=== PATIENT | male | born 1935 | race Caucasian/White ===

== ENCOUNTER 2022-03-05 05:27 | Inpatient (IN) | payer MEDICARE, BC ==
[2022-02-24 14:56] LABS: BASOPHILS % (AUTO) 0.2 % (0-1); EOSINOPHILS # (AUTO) 0.4 X10'3 (0-0.9); EOSINOPHILS % (AUTO) 4.8 % (0-6); LYMPHOCYTES # (AUTO) 1.1 X10'3 (1.1-4.8); LYMPHOCYTES % (AUTO) 13.4 % (21-51); MEAN CORPUSCULAR HEMOGLOBIN 31.3 PG (27.0-31.0); MEAN CORPUSCULAR HGB CONC 32.8 g/dL (33.0-36.5); MEAN CORPUSCULAR VOLUME 95.4 FL (78-98); MEAN PLATELET VOLUME 8.3 FL (7.4-10.4); MONOCYTES # (AUTO) 0.8 X10'3 (0-0.9); MONOCYTES % (AUTO) 10.8 % (2-12); NEUTROPHILS # (AUTO) 5.5 X10'3 (1.8-7.7); NEUTROPHILS % (AUTO) 70.8 % (42-75); PRE OP HEMATOCRIT 41.3 % (42.0-52.0); PRE OP HEMOGLOBIN 13.6 g/dL (14.0-17.9); PRE OP PLATELET COUNT 161 X10'3 (140-440); RED BLOOD COUNT 4.33 X10'6 (4.70-6.10); RED CELL DISTRIBUTION WIDTH 14.2 % (11.5-14.5)
[2022-02-24 15:03] LABS: PRE OP INR 1.2 INR; PRE OP PROTIME 12.4 SECONDS (9.0-12.0)
[2022-02-24 15:09] LABS: ALBUMIN 3.9 G/DL (3.4-5.0); ALBUMIN/GLOBULIN RATIO 1.3 (1.1-1.5); ALKALINE PHOSPHATASE 50 IU/L (46-116); BLOOD UREA NITROGEN 29 MG/DL (7-18); BUN/CREATININE RATIO 27.4 (5.4-32.0); CHLORIDE 107 MMOL/L (99-107); CREATININE 1.06 MG/DL (0.60-1.10); PRE OP ALT 20 U/L (30-65); PRE OP ANION GAP 5 (8-16); PRE OP AST 16 U/L (10-37); PRE OP BILIRUB, TOTAL 0.5 MG/DL (0.0-1.0); PRE OP GLUCOSE 117 MG/DL (70-104); PRE OP POTASSIUM 5.1 MMOL/L (3.4-5.1); PRE OP SODIUM 142 MMOL/L (135-145); TOTAL CARBON DIOXIDE 29.8 MMOL/L (24-32); eGFR 66 ML/MIN
[~2022-03-05] VITALS: Ht 175.3 cm; Wt 92.9 kg
[2022-03-05] VITALS (15 sets, daily range): BP systolic 121–150; BP diastolic 60–125
[~2022-03-05 05:27] MED LIST: CARV-50 PO; CELE-85 PO; DABI150C PO; FURO20TA4 PO; LISI20TA28 PO; MAGN400C PO; ringers solution, lacted 1,000 ML IV SCH
[2022-03-05] MEDS ORDERED: famotidine 20mg tablet PO ONE (05:30)
[2022-03-05] MEDS ORDERED: vancomycin 1,500 MG in NS 300ml IV soln IV ONE (05:30)
[2022-03-05] MEDS ORDERED: clindamycin-Cleocin 900mg/D5W 50 ML IV ONE (05:30)
[2022-03-05] MEDS ORDERED: carVEDilol 12.5mg tablet PO ONE (06:35)
[2022-03-05] MEDS ORDERED: carVEDilol 12.5mg tablet PO SCH (06:35)
[2022-03-05] MEDS ORDERED: ROPIVAcaine 0.5% (5mg/ml) 30ml vial ONE ×2 (06:58→09:39)
[2022-03-05] MEDS ORDERED: epiNEPHrine 1 mg/ml inj ONE (06:58)
--- NOTE | 2022-03-05 06:59 | NUR ---
PATIENT DID NOT WATCH ORTHO DVD, HE DID USE OINTMENT IN NARES, PULSES MARKED, CSM INTACT
[2022-03-05] MEDS ORDERED: morphine 10mg/ml inj. ONE (07:00)
[2022-03-05] MEDS ORDERED: albuterol 2.5 MG/3 ML nebule NEB ONE (07:00)
[2022-03-05] MEDS ORDERED: vancomycin 1,000mg inj ONE (07:01)
[2022-03-05] MEDS ORDERED: tetracaine 1% (10mg/ml) pres. free inj. ONE (07:12)
[2022-03-05] MEDS ORDERED: fentaNYL/PF 50MCG/1 ML 2ML syringe ONE (07:14)
[2022-03-05] MEDS ORDERED: MIDAZolam 1mg/ml 10ml vial ONE (07:14)
[2022-03-05] MEDS ORDERED: ringers solution, lacted 1,000 ML IV SCH (07:20)
[2022-03-05] MEDS ORDERED: fentaNYL/PF 50MCG/1 ML 2ML syringe IV PRN ×2 (07:20)
[2022-03-05] MEDS ORDERED: ondansetron/PF 4mg/2ml inj IV PRN ×2 (07:20→11:20)
[2022-03-05] MEDS ORDERED: morphine 2 MG/ML inj. syringe IV PRN (07:20)
[2022-03-05] MEDS ORDERED: labetalol 20mg/4ml (5mg/ml) syringe IV PRN (07:20)
[2022-03-05] MEDS ORDERED: ROPIVAcaine 0.2% (10 MG/5 ML) BOLUS INJECTION ADDCANAL PRN (07:20)
[2022-03-05] MEDS ORDERED: hydrALAZINE 20mg/ml inj. IV PRN (07:20)
[2022-03-05] MEDS ORDERED: PHENYLephrine 10mg/ml 5ml injection IV ONE (07:42)
[2022-03-05] MEDS ORDERED: albumin (Human) 5% 250ml 250 ML IV ONE (08:21)
[2022-03-05 08:44] LABS: PRE OP INR 1.1 INR; PRE OP PROTIME 10.9 SECONDS (9.0-12.0)
[2022-03-05] MEDS ORDERED: dexamethasone sod phosphate 4mg/ml inj. ONE (09:43)
--- NOTE | 2022-03-05 11:12 | NUR ---
Received from OR via HOSPITAL BED, accompanied by Anesthesiologist:DR CLEMENS and report given by Anesthesiolgist. VSS. PATIENT IS PACED. STATES NO PAIN. SLEEVE ON RIGHT KNEE WITH ON Q PUMP ENTENDER. IV IN THE LEFT HAND 18G. PULSES PALPABLE. REGIONAL NERVE BLOCK. PLACED STICKER STATING REGIONAL NERVE BLOCK. CALLED RADIOLOGY FOR XRAY. Addendum: 03/05/22 at 1200 by Grace Castro RN Amended: Links added.
[2022-03-05] MEDS ORDERED: acetaminophen 325mg tablet PO PRN (11:20)
[2022-03-05] MEDS ORDERED: magnesium hydroxide 30ml (MOM) UD suspension PO PRN (11:20)
[2022-03-05] MEDS ORDERED: HYDROmorphone 1 mg/ml syringe IV PRN (11:20)
[2022-03-05] MEDS ORDERED: naloxone 0.4 mg/ml inj IV PRN (11:20)
[2022-03-05] MEDS ORDERED: bisacodyl 10mg suppository rectal RC PRN (11:20)
[2022-03-05] MEDS ORDERED: oxyCODONE IR 5mg (immed. release) tablet PO PRN (11:20)
[2022-03-05] MEDS ORDERED: diphenhydrAMINE 25mg capsule PO PRN ×2 (11:20)
[2022-03-05] MEDS ORDERED: HYDROmorphone inj. 0.5 MG/0.5 ML DISP.SYRIN IV PRN (11:20)
[2022-03-05] MEDS: ROPIVAcaine 0.2%/PF PUMP/bolus 545 ML ADDCANAL SCH (12:10)
--- NOTE | 2022-03-05 12:10 | NUR ---
Patient in room ORTHO 4022B. I have received report from ZAK VENEGAS FROM [facility] and had the opportunity to ask questions and assume patient care.
[2022-03-05] MEDS: morphine 4 MG/ML inj SYRINge IV PRN ×2 (12:26→12:39)
[2022-03-05] MEDS: gabapentin 300mg capsule PO SCH ×2 (13:00→21:03)
--- NOTE | 2022-03-05 13:12 | NUR ---
PATIENT MEETS DISCHARGE CRITERIA. VVS, PATIENT HAS A POWDER PACK ON HIS KNEE. TOOK PATIENT AND HIS BELONGINGS WITH HIM TO THE ORTHO FLOOR. NURSE AT BEDSIDE. LOWERED AND LOCKED BED AND POUT CALL LIGHT WITHIN REACH. ANSWERED ALL THE NURSES QUESTIONS. Addendum: 03/05/22 at 1519 by Grace Castro RN Amended: Links added.
[2022-03-05] MEDS ORDERED: tranexamic acid inj. 900 MG in normal saline 100ml IV soln 100 ML IV ONE (14:00)
[2022-03-05] MEDS: acetaminophen 325mg tablet PO SCH ×2 (14:00→21:03)
[2022-03-05] MEDS: oxyCODONE IR 5mg (immed. release) tablet PO PRN ×2 (14:55→21:08)
[2022-03-05] MEDS: clindamycin 600mg/D5W 50ml 50 ML IV SCH ×2 (17:04→21:02)
[2022-03-05] MEDS: potassium cl 20mEq in 1/2 NS 1,000 ML IV SCH ×2 (17:09→21:02)
--- NOTE | 2022-03-05 19:11 | NUR ---
Problems reprioritized. Patient report given, questions answered & plan of care reviewed with ZAK MART.
[2022-03-05] MEDS ORDERED: vancomycin/NS 1 GM ADD-VANTAGE 250 ML IV SCH (20:00)
[2022-03-05] MEDS: carVEDilol 12.5mg tablet PO SCH (21:03)
[2022-03-05] MEDS: sennosides 8.6mg tablet PO SCH (21:03)
[2022-03-05] MEDS: dabigatran 150mg capsule PO SCH (22:16)
[2022-03-06 02:00] VITALS: BP 107/64
[2022-03-06] MEDS: acetaminophen 325mg tablet PO SCH ×4 (02:00→20:21)
[2022-03-06] MEDS: potassium cl 20mEq in 1/2 NS 1,000 ML IV SCH ×2 (03:20→05:37)
[2022-03-06 06:00] VITALS: BP 120/40
[2022-03-06 06:34] LABS: BASOPHILS % (AUTO) 0.2 % (0-1); EOSINOPHILS % (AUTO) 0.1 % (0-6); HEMATOCRIT 34.6 % (42.0-52.0); HEMOGLOBIN 11.5 g/dl (14.0-17.9); LYMPHOCYTES # (AUTO) 0.6 X10'3 (1.1-4.8); LYMPHOCYTES % (AUTO) 5.1 % (21-51); MEAN CORPUSCULAR HEMOGLOBIN 31.8 PG (27.0-31.0); MEAN CORPUSCULAR HGB CONC 33.4 g/dL (33.0-36.5); MEAN CORPUSCULAR VOLUME 95.4 FL (78-98); MEAN PLATELET VOLUME 8.1 FL (7.4-10.4); MONOCYTES # (AUTO) 1.8 X10'3 (0-0.9); MONOCYTES % (AUTO) 14.5 % (2-12); NEUTROPHILS # (AUTO) 9.7 X10'3 (1.8-7.7); NEUTROPHILS % (AUTO) 80.1 % (42-75); PLATELET COUNT 137 X10'3 (140-440); RED BLOOD COUNT 3.62 X10'6 (4.70-6.10); RED CELL DISTRIBUTION WIDTH 13.9 % (11.5-14.5); WHITE BLOOD COUNT 12.1 X10'3 (4.5-11.0)
[2022-03-06 06:38] LABS: ANION GAP 6 (8-16); CHLORIDE 103 MMOL/L (99-107); SODIUM 134 MMOL/L (135-145); TOTAL CARBON DIOXIDE 25.2 MMOL/L (24-32)
[2022-03-06 06:46] LABS: POTASSIUM 6.1 MMOL/L (3.5-5.1)
--- NOTE | 2022-03-06 07:02 | NUR ---
Called MD Church regarding critical value 6.1 k. Wants study repeated and to call him back if any concerns. Will bladder scan first to see if pt. retaining urine.
[2022-03-06] MEDS: furosemide 20MG tablet PO SCH (07:25)
[2022-03-06] MEDS: gabapentin 300mg capsule PO SCH ×3 (07:25→20:21)
[2022-03-06] MEDS: magnesium oxide 400mg tablet PO SCH (07:26)
[2022-03-06] MEDS: enoxaparin 40mg/0.4ml syringe SQ SCH (07:26)
[2022-03-06] MEDS ORDERED: lisinopril 20mg tablet PO SCH (08:00)
[2022-03-06] MEDS ORDERED: non-formulary drug (Celecoxib 1 CAP) PO SCH (08:00)
[2022-03-06 10:00] LABS: ALBUMIN 3.2 G/DL (3.4-5.0); BLOOD UREA NITROGEN 20 MG/DL (7-18); CALCIUM 8.1 MG/DL (8.5-10.1); CREATININE 0.91 MG/DL (0.60-1.10); GLUCOSE 124 MG/DL (70-104); eGFR 79 ML/MIN
[2022-03-06 10:44] VITALS: BP 96/42
[2022-03-06 11:07] LABS: ALBUMIN 3.5 G/DL (3.4-5.0); ANION GAP 8 (8-16); BLOOD UREA NITROGEN 22 MG/DL (7-18); CALCIUM 8.6 MG/DL (8.5-10.1); CHLORIDE 102 MMOL/L (99-107); GLUCOSE 138 MG/DL (70-104); POTASSIUM 4.3 MMOL/L (3.5-5.1); SODIUM 137 MMOL/L (135-145); TOTAL CARBON DIOXIDE 26.6 MMOL/L (24-32); eGFR 63 ML/MIN
--- NOTE | 2022-03-06 12:12 | NUR ---
Pt s/p right TKA, seen at bedside for written and verbal protein education. Pt reports low appetite post-op and states he was confused after OR 03/05 which is likely why pt with 0% PO intake since admit. Food preferences were obtained for lunch today and d/w dietary. Pt also requests yogurt and orange juice with meals, d/w dietary. Pt denies food allergies or difficulty swallowing however reports difficulty chewing meat and agrees to chopped meat with extra gravy, d/w dietary. Pt provided with RD contact information and encouraged to reach out if needed. Will remain available. Addendum: 03/06/22 at [address] Amended: Links added.
[2022-03-06] MEDS: normal saline 1000ml 1,000 ML IV SCH ×2 (13:33→22:10)
--- NOTE | 2022-03-06 18:08 | NUR ---
Gave report to Park CRESPO.
[2022-03-06] MEDS: celeCOXIB 100mg capsule PO SCH (20:20)
[2022-03-06] MEDS: sennosides 8.6mg tablet PO SCH (20:21)
[2022-03-06] MEDS: carVEDilol 12.5mg tablet PO SCH (20:22)
[2022-03-06] MEDS: dabigatran 150mg capsule PO SCH (21:11)
[2022-03-06] MEDS: ROPIVAcaine 0.2%/PF PUMP/bolus 545 ML ADDCANAL SCH (21:11)
[2022-03-06 22:00] VITALS: BP 146/44
[2022-03-07] MEDS: acetaminophen 325mg tablet PO SCH ×2 (02:00→04:56)
--- NOTE | 2022-03-07 06:22 | NUR ---
Problems reprioritized. Patient report given, questions answered & plan of care reviewed with ZAK Cruz.
--- NOTE | 2022-03-07 06:30 | NUR ---
Patient in room ORTHO 4022. I have received report from Park oCx RN and had the opportunity to ask questions and assume patient care.
[2022-03-07 07:05] LABS: BASOPHILS % (AUTO) 0.3 % (0-1); EOSINOPHILS # (AUTO) 0.1 X10'3 (0-0.9); EOSINOPHILS % (AUTO) 0.7 % (0-6); HEMATOCRIT 32.8 % (42.0-52.0); HEMOGLOBIN 11.1 g/dl (14.0-17.9); LYMPHOCYTES # (AUTO) 0.9 X10'3 (1.1-4.8); LYMPHOCYTES % (AUTO) 8.1 % (21-51); MEAN CORPUSCULAR HEMOGLOBIN 32.5 PG (27.0-31.0); MEAN CORPUSCULAR HGB CONC 33.9 g/dL (33.0-36.5); MEAN CORPUSCULAR VOLUME 95.7 FL (78-98); MEAN PLATELET VOLUME 8.5 FL (7.4-10.4); MONOCYTES # (AUTO) 1.7 X10'3 (0-0.9); MONOCYTES % (AUTO) 14.3 % (2-12); NEUTROPHILS # (AUTO) 8.9 X10'3 (1.8-7.7); NEUTROPHILS % (AUTO) 76.6 % (42-75); PLATELET COUNT 127 X10'3 (140-440); RED BLOOD COUNT 3.42 X10'6 (4.70-6.10); RED CELL DISTRIBUTION WIDTH 14.2 % (11.5-14.5); WHITE BLOOD COUNT 11.6 X10'3 (4.5-11.0)
[2022-03-07 07:17] VITALS: BP 144/64
[2022-03-07 08:14] LABS: ALANINE AMINOTRANSFERASE 16 U/L (12-78); ALBUMIN/GLOBULIN RATIO 0.9 (1.1-1.5); ALKALINE PHOSPHATASE 39 IU/L (46-116); ANION GAP 7 (8-16); ASPARTATE AMINO TRANSFERASE 28 U/L (10-37); BILIRUBIN,TOTAL 1.1 MG/DL (0.1-1.0); BLOOD UREA NITROGEN 23 MG/DL (7-18); BUN/CREATININE RATIO 18.5 (5.4-32.0); CALCIUM 8.9 MG/DL (8.5-10.1); CHLORIDE 107 MMOL/L (99-107); CREATININE 1.24 MG/DL (0.60-1.10); GLUCOSE 96 MG/DL (70-104); SODIUM 138 MMOL/L (135-145); TOTAL CARBON DIOXIDE 24.4 MMOL/L (24-32); TOTAL PROTEIN 6.3 G/DL (6.4-8.2); eGFR 55 ML/MIN
[2022-03-07] MEDS: enoxaparin 40mg/0.4ml syringe SQ SCH (09:15)
[2022-03-07] MEDS: magnesium oxide 400mg tablet PO SCH (09:16)
[2022-03-07] MEDS: celeCOXIB 100mg capsule PO SCH (09:16)
[2022-03-07] MEDS: furosemide 20MG tablet PO SCH (09:23)
--- NOTE | 2022-03-07 09:30 | NUR ---
Pt had an "emesis" (aprox 100cc chewed food)after breakfast, and stated "I knew I shouldn't have eaten the pancakes first". Pt stated he has reflux from a hiatal hernia, and denied wanting antiemetic.
[2022-03-07 10:00] VITALS: BP 122/40
--- NOTE | 2022-03-07 11:00 | NUR ---
Pt's caregiver, Annette, at bedside. Pt stated she is his friend/neighbor and will be his caregiver after discharge.
[2022-03-07] MEDS ORDERED: acetaminophen 325mg tablet PO PRN (11:20)
--- NOTE | 2022-03-07 12:45 | NUR ---
Per Ptx pt was able to ambulate 150', min x2s/ fww and rtn'd back to bed. Pt was later unable to stand for orthoBPs, and at 1240 pt had a very difficult time transferring from recliner to [facility] [place] [facility] w/ x2 max asst, FWW, and gait belt while being shaky and uncoordinated. Latrell Heath notified. PTx will reeval pt.
[2022-03-07] MEDS ORDERED: OXYC1TAB17 PO (13:56)
--- NOTE | 2022-03-07 17:45 | NUR ---
Upon skin assessment under R knee wrap a large fluid filled blister was discovered to the left of the incision. infant teacher assisted removal of surgical dressing for further assessment. Blister leaked clear pale yellow fluid. Another much smaller blister was discovered to the right of the incision. The stapled incision itself was without blisters. Dr Church was notified and ordered Xeroform be placed on blisters, with non-adherent Telfa drsgs placed on top of Xeroform, followed by "Thor" gauze wrap, and covered with 6" rc-wrap bandages. Aide assisted w/ pt positioning during drsg change. Dr Church requested Home Health RN to take picture of wd on Thursday and call his office for further direction. Drsg change supplies as ordered by were provided for d/cg.
--- NOTE | 2022-03-07 18:30 | NUR ---
Patient report given, questions answered & plan of care reviewed with Park Cox RN.
--- NOTE | 2022-03-07 19:18 | NUR ---
PIV removed, instructions for followup, medications and wound care given. supplies sent with patient. patient transferred into and brought down to car with caregiver.
== END 2022-03-07 19:14 | disposition home health service (06) | DRG 470 ==
LOC: PAS IN 05:27 → EDSTATUS 07:30 → ORTHO 4S 13:10
PROVIDERS: ADMIT Orthopaedic Surgery; ATTEND Orthopaedic Surgery
PROC: 3E0T3BZ Introduction of Anesthetic Agent into Peripheral Nerves and Plexi, Percutaneous Approach (ICD-10-PCS; 2022-03-05)
PROC: 3E0T33Z Introduction of Anti-inflammatory into Peripheral Nerves and Plexi, Percutaneous Approach (ICD-10-PCS; 2022-03-05)
PROC: 0SRC0J9 Replacement of Right Knee Joint with Synthetic Substitute, Cemented, Open Approach (ICD-10-PCS; principal; 2022-03-05 07:42)
DX: M17.11 Unilateral primary osteoarthritis, right knee (principal); E87.1 Hypo-osmolality and hyponatremia; I42.9 Cardiomyopathy, unspecified; N17.9 Acute kidney failure, unspecified; E87.5 Hyperkalemia; I10 Essential (primary) hypertension; I25.10 Atherosclerotic heart disease of native coronary artery without angina pectoris; I48.0 Paroxysmal atrial fibrillation; Z79.01 Long term (current) use of anticoagulants; Z85.3 Personal history of malignant neoplasm of breast; Z87.891 Personal history of nicotine dependence; Z95.1 Presence of aortocoronary bypass graft; Z95.810 Presence of automatic (implantable) cardiac defibrillator; Z88.8 Allergy status to other drugs, medicaments and biological substances; Z79.899 Other long term (current) drug therapy; Z82.49 Family history of ischemic heart disease and other diseases of the circulatory system
CPT/HCPCS: 36415; 71046; 73560; 80048; 80053; 82948; 85025; 85610; 85730; 87081; 93005; 94640; 94760; 97110; 97116; 97161; 97530; A4215; A4333; A6223; A6258; A6449; A7000; C1713; C1758; C1776; C9250; G0378; J0171; J1100; J1650; J2250; J2270; J2274; J2370; J2795; J3010; J3370; J3480; J3490; J7030; J7040; J7120; P9045

== ENCOUNTER 2022-03-10 10:39 | Emergency (ER) | payer MEDICARE, BC ==
[~2022-03-10 10:39] MED LIST changes: -LISI20TA28 PO; +OXYC1TAB17 PO; -ringers solution, lacted 1,000 ML IV SCH
[2022-03-11] MEDS ORDERED: SULF-14 PO (16:37)
== END 2022-03-10 13:41 | disposition left against medical advice (07) ==
LOC: ER 10:39
DX: M25.561 Pain in right knee (principal); Z53.21 Procedure and treatment not carried out due to patient leaving prior to being seen by health care provider

== ENCOUNTER 2022-03-10 12:53 | Outpatient (CLI) | payer MEDICARE, BC ==
[2022-03-11] MEDS ORDERED: SULF-14 PO (16:37)
== END 2022-03-10 23:59 | disposition home or self-care (01) ==
LOC: VAS 12:53
PROVIDERS: ATTEND Orthopaedic Surgery
DX: M25.561 Pain in right knee (principal); R60.0 Localized edema
CPT/HCPCS: 93971

== ENCOUNTER 2022-03-11 09:30 | Inpatient (IN) | payer MEDICARE, BC ==
[~2022-03-11] VITALS: Ht 175.3 cm; Wt 90.9 kg
[2022-03-11 10:36] LABS: BASOPHILS % (AUTO) 0.4 % (0-1); EOSINOPHILS # (AUTO) 0.1 X10'3 (0-0.9); EOSINOPHILS % (AUTO) 1.2 % (0-6); HEMATOCRIT 32.5 % (42.0-52.0); HEMOGLOBIN 11.1 g/dl (14.0-17.9); LYMPHOCYTES # (AUTO) 0.8 X10'3 (1.1-4.8); MEAN CORPUSCULAR HEMOGLOBIN 32.5 PG (27.0-31.0); MEAN CORPUSCULAR HGB CONC 34.1 g/dL (33.0-36.5); MEAN CORPUSCULAR VOLUME 95.4 FL (78-98); MEAN PLATELET VOLUME 7.7 FL (7.4-10.4); MONOCYTES # (AUTO) 1.1 X10'3 (0-0.9); MONOCYTES % (AUTO) 10.1 % (2-12); NEUTROPHILS # (AUTO) 8.4 X10'3 (1.8-7.7); NEUTROPHILS % (AUTO) 80.3 % (42-75); PLATELET COUNT 277 X10'3 (140-440); RED BLOOD COUNT 3.41 X10'6 (4.70-6.10); RED CELL DISTRIBUTION WIDTH 14.1 % (11.5-14.5); WHITE BLOOD COUNT 10.4 X10'3 (4.5-11.0)
[2022-03-11] MEDS ORDERED: vancomycin/NS 1 GM ADD-VANTAGE 250 ML IV ONE (10:45)
[2022-03-11] MEDS ORDERED: piperacillin/tazo 3.375gm/50ml 50 ML IV ONE (10:45)
[2022-03-11 10:52] LABS: ALANINE AMINOTRANSFERASE 53 U/L (12-78); ALBUMIN 2.9 G/DL (3.4-5.0); ALBUMIN/GLOBULIN RATIO 0.7 (1.1-1.5); ALKALINE PHOSPHATASE 85 IU/L (46-116); ANION GAP 11 (8-16); ASPARTATE AMINO TRANSFERASE 37 U/L (10-37); BILIRUBIN,TOTAL 0.8 MG/DL (0.1-1.0); BLOOD UREA NITROGEN 26 MG/DL (7-18); BUN/CREATININE RATIO 23.4 (5.4-32.0); CALCIUM 8.9 MG/DL (8.5-10.1); CHLORIDE 104 MMOL/L (99-107); CREATININE 1.11 MG/DL (0.60-1.10); GLUCOSE 148 MG/DL (70-104); POTASSIUM 4.5 MMOL/L (3.5-5.1); SODIUM 143 MMOL/L (135-145); TOTAL CARBON DIOXIDE 28.2 MMOL/L (24-32); eGFR 63 ML/MIN
[2022-03-11 12:19] LABS: CLARITY,URINE CLEAR (Clear); COLOR,URINE YELLOW (Yellow); GLUCOSE, URINE NEGATIVE (Neg); KETONES,URINE NEGATIVE (Neg); LEUKOCYTE ESTERASE ,URINE NEGATIVE (Neg); NITRITES, URINE NEGATIVE (Neg); OCCULT BLOOD,URINE TRACE-INTACT (Neg); PH,URINE 5.5 (4.8-8.0); PROTEIN,URINE NEGATIVE (Neg); UROBILINOGEN,URINE 0.2 E.U/dL (0.2-1.0)
[2022-03-11] MEDS ORDERED: ondansetron/PF 4mg/2ml inj IV PRN (12:20)
[2022-03-11] MEDS ORDERED: normal saline 1000ml 1,000 ML IV SCH (12:20)
[2022-03-11] MEDS ORDERED: morphine 2 MG/ML inj. syringe IV PRN (12:20)
[2022-03-11] MEDS ORDERED: bisacodyl 10mg suppository rectal RC PRN (12:20)
[2022-03-11] MEDS ORDERED: magnesium 2GM in 50ml NS 50 ML IV PRN (12:20)
[2022-03-11] MEDS ORDERED: magnesium hydroxide 30ml (MOM) UD suspension PO PRN (12:20)
[2022-03-11] MEDS ORDERED: magnesium 4gm in 100ml NS 100 ML IV PRN (12:20)
[2022-03-11] MEDS ORDERED: magnesium Cl slow-release 64mg tablet PO PRN (12:20)
[2022-03-11] MEDS ORDERED: HYDROcodone/acetaminophen 5mg/325mg tablet PO PRN (12:20)
[2022-03-11] MEDS ORDERED: potassium CL 10mEq/100ml bag 100 ML IV PRN (12:20)
[2022-03-11] MEDS ORDERED: acetaminophen 325mg tablet PO PRN (12:20)
[2022-03-11] MEDS ORDERED: POTASSIUM BICARB 20meq eff tab 20 MEQ TABLET.EFF PO PRN ×2 (12:20)
[2022-03-11] MEDS ORDERED: PERFLUTREN PROTEIN-A MICROSPHR (Optison) 0.22 MG/ML 3ML VIAL IV ONE (12:35)
[2022-03-11 12:46] LABS: UA COLLECTION TYPE VOIDED
[2022-03-11 12:49] LABS: BACTERIA,URINE FEW /HPF (Neg); RBC,URINE 0-2 /HPF (0-2); SQUAMOUS EPITHELIAL CELL,UR FEW /LPF (FEW); WBC,URINE 0-4 /HPF (0-4)
[2022-03-11 12:50] LABS: MAGNESIUM 2.4 MG/DL (1.5-2.4)
--- NOTE | 2022-03-11 14:16 | NUR ---
TOP EDGE BEVELER AT BEDSIDE AT THIS TIME.
[2022-03-11] MEDS ORDERED: SULF-14 PO (16:37)
--- NOTE | 2022-03-11 18:20 | NUR ---
Patient in room ORTHO 4007. I have received report from BEULAH Hickman LVN, RN and had the opportunity to ask questions and assume patient care.
[2022-03-11 18:22] VITALS: BP 158/57
--- NOTE | 2022-03-11 18:35 | NUR ---
Problems reprioritized. Patient report given, questions answered & plan of care reviewed with GISELL Higginbotham.
[2022-03-11] MEDS: K and/or MAG REPLACEMENT MC SCH (20:00)
[2022-03-11] MEDS: dabigatran 150mg capsule PO SCH (21:00)
[2022-03-11] MEDS: docusate sod 100mg capsule PO SCH (21:05)
[2022-03-11] MEDS: carVEDilol 12.5mg tablet PO SCH (21:05)
[2022-03-11 22:00] VITALS: BP 149/68
[2022-03-12] MEDS: oxyCODONE/APAP 10/325mg tablet PO PRN ×2 (02:29→15:02)
[2022-03-12 04:46] LABS: ALBUMIN 2.7 G/DL (3.4-5.0); ANION GAP 9 (8-16); BLOOD UREA NITROGEN 23 MG/DL (7-18); BUN/CREATININE RATIO 22.3 (5.4-32.0); CALCIUM 8.9 MG/DL (8.5-10.1); CHLORIDE 106 MMOL/L (99-107); CREATININE 1.03 MG/DL (0.60-1.10); GLUCOSE 119 MG/DL (70-104); MAGNESIUM 2.4 MG/DL (1.5-2.4); POTASSIUM 4.4 MMOL/L (3.5-5.1); SODIUM 141 MMOL/L (135-145); TOTAL CARBON DIOXIDE 26.1 MMOL/L (24-32); eGFR 68 ML/MIN
[2022-03-12 04:47] LABS: MEAN CORPUSCULAR HGB CONC 33.7 g/dL (33.0-36.5); MEAN PLATELET VOLUME 7.6 FL (7.4-10.4)
[2022-03-12 04:49] LABS: BASOPHILS % (AUTO) 0.4 % (0-1); EOSINOPHILS # (AUTO) 0.3 X10'3 (0-0.9); EOSINOPHILS % (AUTO) 3.2 % (0-6); HEMATOCRIT 32.1 % (42.0-52.0); HEMOGLOBIN 10.8 g/dl (14.0-17.9); LYMPHOCYTES % (AUTO) 12.2 % (21-51); MEAN CORPUSCULAR HEMOGLOBIN 31.8 PG (27.0-31.0); MEAN CORPUSCULAR VOLUME 94.4 FL (78-98); MONOCYTES % (AUTO) 12.1 % (2-12); NEUTROPHILS # (AUTO) 5.8 X10'3 (1.8-7.7); NEUTROPHILS % (AUTO) 72.1 % (42-75); PLATELET COUNT 279 X10'3 (140-440)
[2022-03-12 06:00] VITALS: BP 136/67
--- NOTE | 2022-03-12 06:32 | NUR ---
Patient in room ORTHO 4007. I have received report from Anahy JAMESON and had the opportunity to ask questions and assume patient care.
--- NOTE | 2022-03-12 07:07 | NUR ---
some of pt admission was not done when i came on shift. i asked pt questioned and we were able to finish it.
[2022-03-12] MEDS ORDERED: levoFLOXACIN-Levaquin 500mg/D5 100 ML IV SCH (08:00)
[2022-03-12] MEDS: K and/or MAG REPLACEMENT MC SCH ×2 (08:00→20:51)
[2022-03-12] MEDS: furosemide 20MG tablet PO SCH (08:37)
[2022-03-12] MEDS: docusate sod 100mg capsule PO SCH ×2 (08:37→19:31)
--- NOTE | 2022-03-12 09:46 | NUR ---
changed pt dressing per dr ash, he was present at time of dressing change. will continue to monitor pt
[2022-03-12 10:00] VITALS: BP 115/45
[2022-03-12] MEDS: vancomycin/NS 1 GM ADD-VANTAGE 250 ML X 1 DOSE IV SCH (11:41)
--- NOTE | 2022-03-12 18:27 | NUR ---
Problems reprioritized. Patient report given, questions answered & plan of care reviewed with ESHA CRESPO.
[2022-03-12] MEDS: dabigatran 150mg capsule PO SCH (19:31)
[2022-03-12] MEDS: carVEDilol 12.5mg tablet PO SCH (19:32)
[2022-03-12] MEDS ORDERED: famotidine 10mg tablet PO PRN (20:40)
[2022-03-12] MEDS ORDERED: famotidine 20mg tablet PO SCH (20:40)
[2022-03-12 22:00] VITALS: BP 113/52
--- NOTE | 2022-03-12 22:38 | NUR ---
Agree with SEWING DEMONSTRATOR assessment.
[2022-03-13 00:03] VITALS: BP 112/38
[2022-03-13] MEDS: oxyCODONE/APAP 10/325mg tablet PO PRN ×2 (05:01→13:00)
--- NOTE | 2022-03-13 05:45 | NUR ---
Patient in room ORTHO 4007. I have received report from Anahy CRESPO and had the opportunity to ask questions and assume patient care.
[2022-03-13 05:51] LABS: BASOPHILS % (AUTO) 0.4 % (0-1); EOSINOPHILS # (AUTO) 0.2 X10'3 (0-0.9); EOSINOPHILS % (AUTO) 2.5 % (0-6); HEMATOCRIT 33.3 % (42.0-52.0); HEMOGLOBIN 11.1 g/dl (14.0-17.9); LYMPHOCYTES # (AUTO) 1.1 X10'3 (1.1-4.8); LYMPHOCYTES % (AUTO) 12.8 % (21-51); MEAN CORPUSCULAR HEMOGLOBIN 31.6 PG (27.0-31.0); MEAN CORPUSCULAR HGB CONC 33.4 g/dL (33.0-36.5); MEAN CORPUSCULAR VOLUME 94.8 FL (78-98); MEAN PLATELET VOLUME 7.2 FL (7.4-10.4); MONOCYTES % (AUTO) 12.1 % (2-12); NEUTROPHILS # (AUTO) 5.9 X10'3 (1.8-7.7); NEUTROPHILS % (AUTO) 72.2 % (42-75); PLATELET COUNT 332 X10'3 (140-440); RED BLOOD COUNT 3.51 X10'6 (4.70-6.10); RED CELL DISTRIBUTION WIDTH 13.8 % (11.5-14.5); WHITE BLOOD COUNT 8.2 X10'3 (4.5-11.0)
[2022-03-13 06:00] VITALS: BP 116/55
[2022-03-13 06:05] LABS: ALBUMIN 2.8 G/DL (3.4-5.0); ANION GAP 9 (8-16); BLOOD UREA NITROGEN 27 MG/DL (7-18); BUN/CREATININE RATIO 26.2 (5.4-32.0); CALCIUM 8.9 MG/DL (8.5-10.1); CHLORIDE 104 MMOL/L (99-107); CREATININE 1.03 MG/DL (0.60-1.10); GLUCOSE 118 MG/DL (70-104); MAGNESIUM 2.4 MG/DL (1.5-2.4); POTASSIUM 4.2 MMOL/L (3.5-5.1); SODIUM 139 MMOL/L (135-145); TOTAL CARBON DIOXIDE 26.1 MMOL/L (24-32); eGFR 68 ML/MIN
[2022-03-13] MEDS: docusate sod 100mg capsule PO SCH (06:53)
[2022-03-13] MEDS: furosemide 20MG tablet PO SCH (06:54)
[2022-03-13 10:00] VITALS: BP 126/49
[2022-03-13] MEDS: vancomycin/NS 1 GM ADD-VANTAGE 250 ML X 1 DOSE IV SCH (12:24)
[2022-03-13] MEDS ORDERED: DOXY100C76 PO (14:10)
--- NOTE | 2022-03-13 15:03 | NUR ---
WOUND INFECTION EDUCATION PROVIDED BY WOUND CARE 1. Patient instructed to call their primary doctor, or go the ED immediately if any of the following symptoms occur: * Increased pain in wound * Increase in drainage from the wound * Redness in the skin surrounding the wound * Warmth in the skin surrounding the wound * Bleeding from the wound * Temperature of 101 or greater 2. If any of these occur while in the hospital tell a nurse immediately. Addendum: 03/13/22 at 1503 by Ev Selby LVN Amended: Links added.
--- NOTE | 2022-03-13 16:30 | NUR ---
Patient discharged with family at this time. They were given some extra dressing for knee blisters. They were educated to not shower or use cpm device until seen by Dr Church, as this is what he said.
[2022-03-14] MEDS ORDERED: VANCOMYCIN LEVEL IV ONE (10:30)
--- NOTE | 2022-03-19 12:51 | NUR ---
Case Management DC follow up:Spoke with Patient via telephone.S/P: Patient Reports:Denies: Acute chest pain,emergent SOB, resp distress, dyspnea, N/V, weakness, vertigo, syncope episodes, headache ,blurry vision, s/s of stroke/BE-FAST, dysuria, hematuria,retention, abdominal pain/distention, hematochezia,melena, unexplained bruising, bleeding, fever chills.Verbalizes his knee incision is intact with marianne, no redness, warmth,drainage at site.Verbalizes [facility] Nurse has been out to see him, and blisters on leg are improving.Verbalizes understanding of new Rx:, why prescribed; continues/resumes current Rx as ordered. Verbalizes he has scheduled appointment with March to have his marianne removed.Verbalizes understanding of s/s that warrant a -/ER visit for further evaluation.Verbalizes compliance with aftercare.Verbalizes his care was not the best, reflecting he was aware nurses were understaffed.Needs met, questions/concerns addressed at DC. No further questions/concerns regarding recent hospital stay and or DC status at this time.
== END 2022-03-13 16:30 | disposition home health service (06) | DRG 863 ==
LOC: ER 09:31 → ED HOLD 12:26 → ORTHO 4S 18:15
PROVIDERS: ADMIT Internal Medicine; ATTEND Internal Medicine
DX: T81.40XA Infection following a procedure, unspecified, initial encounter (principal); L03.115 Cellulitis of right lower limb; I48.20 Chronic atrial fibrillation, unspecified; I42.9 Cardiomyopathy, unspecified; I50.22 Chronic systolic (congestive) heart failure; Z96.651 Presence of right artificial knee joint; Y83.8 Other surgical procedures as the cause of abnormal reaction of the patient, or of later complication, without mention of misadventure at the time of the procedure; I11.0 Hypertensive heart disease with heart failure; I25.10 Atherosclerotic heart disease of native coronary artery without angina pectoris; Z95.810 Presence of automatic (implantable) cardiac defibrillator; Z95.1 Presence of aortocoronary bypass graft; Z88.8 Allergy status to other drugs, medicaments and biological substances; Z82.49 Family history of ischemic heart disease and other diseases of the circulatory system; Z79.899 Other long term (current) drug therapy; Y92.89 Other specified places as the place of occurrence of the external cause
CPT/HCPCS: 36415; 80048; 80053; 81001; 83605; 83735; 84145; 85025; 87040; 87081; 93306; 93971; 96365; 97116; 97161; 97530; 99285; A6222; A6223; A6258; A6446; A6449; G0378; J1956; J2270; J2543; J3370; J7030; J7042; J7121

== ENCOUNTER 2022-04-29 12:24 | Day surgery (SDC) | payer MEDICARE, BC ==
[2022-04-24 08:31] LABS: BASOPHILS % (AUTO) 0.6 % (0-1); EOSINOPHILS # (AUTO) 0.5 X10'3 (0-0.9); EOSINOPHILS % (AUTO) 8.3 % (0-6); HEMATOCRIT 38.5 % (42.0-52.0); HEMOGLOBIN 13.1 g/dl (14.0-17.9); LYMPHOCYTES % (AUTO) 15.4 % (21-51); MEAN CORPUSCULAR HEMOGLOBIN 32.7 PG (27.0-31.0); MEAN CORPUSCULAR HGB CONC 34.1 g/dL (33.0-36.5); MEAN CORPUSCULAR VOLUME 95.8 FL (78-98); MEAN PLATELET VOLUME 7.9 FL (7.4-10.4); MONOCYTES # (AUTO) 0.7 X10'3 (0-0.9); MONOCYTES % (AUTO) 10.9 % (2-12); NEUTROPHILS % (AUTO) 64.8 % (42-75); PLATELET COUNT 229 X10'3 (140-440); RED BLOOD COUNT 4.02 X10'6 (4.70-6.10); RED CELL DISTRIBUTION WIDTH 14.5 % (11.5-14.5); WHITE BLOOD COUNT 6.2 X10'3 (4.5-11.0)
[2022-04-24 08:32] LABS: APTT 51 SECONDS (22-32)
[2022-04-24 09:08] LABS: ALBUMIN 3.6 G/DL (3.4-5.0); ANION GAP 8 (8-16); BLOOD UREA NITROGEN 22 MG/DL (7-18); BUN/CREATININE RATIO 22.4 (5.4-32.0); CHLORIDE 105 MMOL/L (99-107); CHOL/HDL RATIO 4.5 (0.00-4.99); CHOLESTEROL 209 MG/DL (0-200); CREATININE 0.98 MG/DL (0.60-1.10); GLUCOSE 90 MG/DL (70-104); HDL CHOLESTEROL 46 MG/DL (35-60); LDL CHOLESTEROL 134 MG/DL (50-100); POTASSIUM 4.6 MMOL/L (3.5-5.1); SODIUM 140 MMOL/L (135-145); TOTAL CARBON DIOXIDE 27.2 MMOL/L (24-32); TRIGLYCERIDES 102 MG/DL (20-135); eGFR 72 ML/MIN
[2022-04-29] VITALS (8 sets, daily range): BP systolic 119–153; BP diastolic 57–92
[~2022-04-29] VITALS: Ht 172.7 cm; Wt 95.1 kg
[~2022-04-29 12:24] MED LIST changes: +DOXY100C76 PO
[2022-04-29] MEDS ORDERED: normal saline 1,000 ML IV SCH (13:00)
[2022-04-29] MEDS ORDERED: diphenhydrAMINE 25mg capsule PO PRN (13:00)
[2022-04-29] MEDS ORDERED: LORazepam 0.5 MG tablet PO PRN (13:00)
[2022-04-29] MEDS ORDERED: CHOL400T57 PO (13:13)
[2022-04-29] MEDS ORDERED: LIDOcaine 1%/PF 5ML 10 MG/ML VIAL ONE ×2 (14:54)
[2022-04-29] MEDS ORDERED: midazolam 1 mg/ML 2ml injection ONE (14:54)
[2022-04-29] MEDS ORDERED: fentaNYL/PF 50MCG/1 ML 2ML syringe ONE (14:54)
[2022-04-29] MEDS ORDERED: iohexol 350MG/ML 100ml bottle IV ONE ×2 (14:54→15:55)
[2022-04-29] MEDS ORDERED: DOBUTamine-DoBUTrex 500mg/D5W 250 ML IV ONE (15:34)
[2022-04-29 16:33] LABS: ISTAT HGB ART 11.9 g/dl (14.0-18.0); ISTAT Hct ART 35 %PCV (42-52); ISTAT O2 SATURATION ARTERIAL 89 % (95-98); ISTAT SOURCE ART
[2022-04-29] MEDS ORDERED: HYDROcodone/acetaminophen 5mg/325mg tablet PO PRN (17:20)
[2022-04-29] MEDS ORDERED: HYDROcodone/acetaminophen 10/325mg tab PO PRN (17:20)
[2022-04-30 06:15] LABS: ISTAT Hct MIX 37 %PCV (42-52); ISTAT O2 SATURATION MIX VENOUS 59 % (60-80); ISTAT SOURCE VEN
== END 2022-04-29 18:40 | disposition home or self-care (01) ==
LOC: SSTAY O 12:24
PROVIDERS: ATTEND Student in an Organized Health Care Education/Training Program
DX: I25.10 Atherosclerotic heart disease of native coronary artery without angina pectoris (principal); I35.0 Nonrheumatic aortic (valve) stenosis; I48.91 Unspecified atrial fibrillation; I11.0 Hypertensive heart disease with heart failure; I50.9 Heart failure, unspecified; I42.9 Cardiomyopathy, unspecified; Z95.1 Presence of aortocoronary bypass graft; Z79.899 Other long term (current) drug therapy; Z98.890 Other specified postprocedural states
CPT/HCPCS: 36415; 80048; 80061; 82803; 85014; 85025; 85610; 85730; 93005; 93461; 99152; 99153; C1760; C1769; C1894; J1250; J1644; J2250; J3010; J3490; J7030; Q9967; A4620; A6258

== ENCOUNTER → 2022-10-29 | Day surgery (SDC) | payer MEDICARE, BC ==
[2022-10-21 15:56] LABS: BASOPHILS % (AUTO) 0.5 % (0-1); EOSINOPHILS # (AUTO) 0.2 X10'3 (0-0.9); EOSINOPHILS % (AUTO) 3.4 % (0-6); LYMPHOCYTES # (AUTO) 1.1 X10'3 (1.1-4.8); LYMPHOCYTES % (AUTO) 16.8 % (21-51); MEAN CORPUSCULAR HEMOGLOBIN 32.4 PG (27.0-31.0); MEAN CORPUSCULAR HGB CONC 33.1 g/dL (33.0-36.5); MEAN CORPUSCULAR VOLUME 97.9 FL (78-98); MEAN PLATELET VOLUME 8.4 FL (7.4-10.4); MONOCYTES # (AUTO) 0.7 X10'3 (0-0.9); MONOCYTES % (AUTO) 10.3 % (2-12); NEUTROPHILS # (AUTO) 4.4 X10'3 (1.8-7.7); PRE OP HEMATOCRIT 43.4 % (42.0-52.0); PRE OP HEMOGLOBIN 14.4 g/dL (14.0-17.9); PRE OP PLATELET COUNT 155 X10'3 (140-440); RED BLOOD COUNT 4.44 X10'6 (4.70-6.10); RED CELL DISTRIBUTION WIDTH 13.9 % (11.5-14.5)
[2022-10-21 16:14] LABS: ALBUMIN/GLOBULIN RATIO 1.3 (1.1-1.5); ALKALINE PHOSPHATASE 68 IU/L (46-116); BLOOD UREA NITROGEN 32 MG/DL (7-18); CHLORIDE 104 MMOL/L (99-107); CREATININE 1.39 MG/DL (0.60-1.10); PRE OP ALT 27 U/L (30-65); PRE OP ANION GAP 5 (8-16); PRE OP AST 28 U/L (10-37); PRE OP BILIRUB, TOTAL 0.6 MG/DL (0.0-1.0); PRE OP GLUCOSE 129 MG/DL (70-104); PRE OP SODIUM 141 MMOL/L (135-145); TOTAL CARBON DIOXIDE 32.5 MMOL/L (24-32); TOTAL PROTEIN 7.1 G/DL (6.4-8.2); eGFR 48 ML/MIN
[~2022-10-29] VITALS: Ht 177.8 cm; Wt 94.3 kg
[~2022-10-29] MED LIST changes: +BUPIVAcaine 0.5% inj/PF 0 ML ONE; +CHOL400T57 PO; -DOXY100C76 PO; +LIDOcaine 0.5% (5mg/ml) 50ml vial ONE; -OXYC1TAB17 PO; +clindamycin-Cleocin 900mg/D5W 50 ML IV ONE; +famotidine 20mg tablet PO ONE; +ringers solution, lacted 1,000 ML IV SCH
== END | disposition home or self-care (01) ==
LOC: PAS 07:58
PROVIDERS: ATTEND Orthopaedic Surgery
DX: G56.01 Carpal tunnel syndrome, right upper limb (principal); Z53.8 Procedure and treatment not carried out for other reasons; R05.9 Cough, unspecified; J43.9 Emphysema, unspecified; I11.0 Hypertensive heart disease with heart failure; I50.9 Heart failure, unspecified; Z87.891 Personal history of nicotine dependence; Z79.899 Other long term (current) drug therapy; Z98.890 Other specified postprocedural states; Z95.810 Presence of automatic (implantable) cardiac defibrillator; Z95.1 Presence of aortocoronary bypass graft; Z98.42 Cataract extraction status, left eye; Z98.41 Cataract extraction status, right eye; Z88.1 Allergy status to other antibiotic agents; Z91.040 Latex allergy status; Z91.09 Other allergy status, other than to drugs and biological substances
CPT/HCPCS: 36415; 80053; 85025; J7120; J3490; S0020